=== PATIENT | female | born 1990 | race Two or more races ===

== ENCOUNTER 2019-04-23 06:08 | Inpatient (IN) | payer OTHER ==
[~2019-04-23] VITALS: Ht 170.2 cm; Wt 83.5 kg
--- NOTE | 2019-04-23 06:28 | NUR ---
SE RECIBE PTE LA CUAL REFIERE PRESENTAR HERNÁN DOLOR ABDOMINAL EL CUAL COMENZO HACE UNAS HRS EN CUADRANTE INFERIOR. PTE REFIERE NOTAR ABDOMEN DISTENDIDO Y NAUSEAS.
--- NOTE | 2019-04-23 08:19 | NUR ---
PACIENTE FEMINA ALERTA Y ORIENTADA, BAJO MEDIDAS ASEPTICAS SE CESILIA MUESTRAS DE LABORATORIO Y SE ADMINISTRA MEDICAMENTO INTRAMUSCULAR EN GLUTEODORSAL RT. SE ORIENTA SOBRE EL TRATAMIENTO Y REFIERE ENTENDER. ORDENES TOMADAS Y EJECUTADAS POR RN: GIANNA
--- NOTE | 2019-04-23 13:09 | NUR ---
UTILIZANDO MEDIDAS ASEPTICAS SE CANALIZA PACIENTE EN ANTEBRAZO RT CON ANGIO #20 PAULY DE EDEMA Y ERRITEMA. SE ADMINISTRAN MEDICAMNTOS JOSEPHINE ORDENES MEDICAS. ORDENES TOMADAS Y EJECUTADAS POR RN: GIANNA
--- NOTE | 2019-04-23 21:12 | NUR ---
PTE ALERTA Y ORIENTADA X 3 ESFERAS,EN EVIE CON BARANDAS ELEVADAS,EN COMPANAIA DE FAMILIAR,AREA DE VENOPUNCION PATENTE Y PAULY DE EDEMA CON FLUIDOS DE MANTENIMIENTO BAJANDO SIN DIFICULTAD,SE REALIZA CT IV.
--- NOTE | 2019-04-24 00:46 | NUR ---
SE RECIBE FEMINA ALERTA Y ORIENTADA POR MARCELA ESFERAS, EN CAMA CON BARANDAS SEGURAS Y ELEVADAS. AREA DE VENOPUNCION PAULY DE EDEMA O ENROJECIMIENTO. SE ADMINISTRAN MEDICAMENTOS ORDENADOS. PENDIENTE VISITA DE MEDICO CONSULTADO.
--- NOTE | 2019-04-24 07:51 | NUR ---
SE RECIBE FEMINA ALERTA Y ORIENTADA POR MARCELA ESFERAS, EN CAMA CON BARANDAS SEGURAS Y ELEVADAS. SE OBSERVA AREA DE VENOPUNCION PAULY DE EDEMA. PENDIENTE VISITA DE MEDICO CONSULTADO.
[2019-05-01] MEDS ORDERED: Tylenol Extra Streng PO (16:50)
== END 2019-05-01 16:57 | disposition home or self-care (01) | DRG 761 ==
LOC: ER 06:08 → OB/GYN 04-24 10:40
PROVIDERS: ADMIT Specialist
PROC: BU46ZZZ Ultrasonography of Uterus (ICD-10-PCS; principal; 2019-04-29 14:00)
DX: N83.11 Corpus luteum cyst of right ovary (principal)